=== PATIENT | female | born 1960 | race Caucasian/White ===

== ENCOUNTER 2018-05-05 20:49 | Inpatient (IN) | payer OTHER ==
[~2018-05-05] VITALS: Ht 154.9 cm; Wt 54.6 kg
--- NOTE | 2018-05-06 02:50 | NUR ---
PT ARRIVED TO FLOOR VIA STRETCHER. SBA TO TRANSFER TO MS STRETCHER. PT REPORTS NO FEELINGS OF DIZZINESS. REPORTS NO MADELEINE KODY THIS TIME. CONSTANT NAUSEA. 2L NC IN PLACE. SL IN RIGHT AC. D51/2NS WITH 20KCL STARTED AT 150ML/HR. EMISIS BAG PROVIDED. CLEAR LIQUIDS PROVIDED. STANDING WEIGHT. PT REPORTS RECENT WEIGHT LOSS OF 8LBS. VS TAKEN. PT ORIENTED TO ROOM. OOB TO BATHROOM. VOIDED 400ML. BACK TO BED. CALL LIGHT PROVIDED. EDUCATED ON USE, SAFETY AND FALL PREVENTION. PT VERBALIZED UNDERSTANDING. IV SITE WNL AND FLUSHES WELL. DENIES FURTHER NEEDS AT THIS TIME.
--- NOTE | 2018-05-06 06:30 | NUR ---
HELPED PT TO THE RESTROOM AND BACK TO BED, ADMINISTERED ZOFRAN FOR NAUSEA. PT REMOVED O2 AND O2 SAT DROPPED TO 89%. PT HAS [address] AT THIS TIME AT 95%.
--- NOTE | 2018-05-06 06:54 | NUR ---
DR MARKHAM NOTIFIED ABOUT PT LOW PLATELET COUNT OF 84 AND LOVENOX ORDERED. TELEPHONE ORDERS TO DC LOVENOX AND PLACE SCD'S AT THIS TIME
--- NOTE | 2018-05-06 07:16 | NUR ---
ZOFRAN NOT EFFECTIVE ON NAUSEA. PHENERGAN ADMINISTERED. CALL LIGHT IN REACH. DENIES OTHER NEEDS AT THIS TIME
--- NOTE | 2018-05-06 10:21 | NUR ---
ADMINISTERED MEDICATION PER MAR, PATIENT HAD 200 EMESIS AFTER SWALLOWING PRADAXA, LUCKILY MEDICATION STAYED DOWN. PATIENT REPORTS SOME RELIEF AND ABLE TO REST BACK IN BED. LR BOLUS INFUSING. INSTRUCTED PATIENT TO USE CALL LIGHT WHEN SHE NEEDS TO GET UP TO THE BATHROOM. PATIENT VERBALIZED UNDERSTANDING. NO COMPLAINTS OF PAIN AT THIS TIME, 0/10 ON PAIN SCALE. PATIENT AWARE SHE CAN HAVE SOME MORHPINE NEEDED IV. NO OTHER NEEDS AT THIS TIME. CALL LIGHT WITHIN REACH.
--- NOTE | 2018-05-06 10:38 | NUR ---
pt is resting in bed safely with call light in reach. pt asked for some 7-up
--- NOTE | 2018-05-06 13:26 | NUR ---
PT CALL LIGHT ON. PT REQUESTS ASSISTANCE UP TO REST ROOM. PT UP TO VOID WITHOUT ISSUE. PT BACK TO BED. O2 BY NC IN PLACE. SCDS REAPPLIED. PT STATES SHE HAS NO ADDITIONAL REQUESTS OR COMPALINTS AT THIS TIME.
--- NOTE | 2018-05-06 14:51 | NUR ---
pt complaints of nausea, nurse notified. pt oxygen was low canula not in nose, oxygen canula put back on. sats returned to normal. pt resting in bed safley. call light within reach.
--- NOTE | 2018-05-06 16:08 | NUR ---
ADMINISTERED 8MG IV ZOFRAN PATIENT 100ML OF EMESIS AT BEDSIDE. UP TO BATHROOM. GOOD URINE OUTPUT. HOSPITALIST IN ROOM NOW FOR CONSULT. PLAN TO ADMINISTER IV PHENERGAN AFTER AMBULATION IN HALLS.
--- NOTE | 2018-05-06 17:08 | NUR ---
PATIENT SPIKED TEMP 102.6, NOTIFIED DR. MARKHAM. NEW ORDERS FOR BLOOD CULUTURES AND TYLENOL. PATIENT HAD PROJECTILE EMESIS, AND THEN UP TO BATHROOM HAD XL DIARRHEA. PATIENT NOW BACK IN BED, APPEARS LESS ANXIOUS, CONVERSING WITH DAUGHTER. PHENERGAN IV INFUSING.
--- NOTE | 2018-05-06 17:30 | NUR ---
pt resting safely in bed. pt sipping on water. pt has company in room. call light within reach.
--- NOTE | 2018-05-06 17:33 | NUR ---
pt temperature elevated, nurse notified. pt resting in bed. call light within reach.
--- NOTE | 2018-05-06 18:56 | NUR ---
PATIENT HAD EPISODES OF N/V THROUGHOUT DAY MANAGED WITH ZOFRAN AND PHENERGAN. PATIENT UNABLE TO MAINTAIN SATURATIONS ON ROOM AIR, NOW ON 2LNC, LUNG SOUNDS CLEAR THIS MORNING, HOWEVER NOW SOUND MORE DIMINISHED AND PATIENT IS COUGHING UP SOME SPUTUM. IS INITIATED, PATIENT ABLE TO GET 1200 WITH DEVICE. NEW MEDICATION FOR ANTICOAGULATION DABIGATRAN ADMINISTERED. PATIENT TOLERATED WELL. SIPS OF CLEAR FOR COMFORT THROUGHOUT DAY, MOSTLY ICE WATER. SPIKED TEMP 102.6, DR. MARKHAM NOTIFIED PER TELEPHONE, NEW ORDERS FOR BLOOD CULTURES X2 AND TYLENOL FOR FEVER. TEMPERATURE TRENDING DOWN, AND PATIENT RESTING CALMY IN BED AFTER IV PHENERGAN ADMINISTERED. IV BOLUS NS ADMINISTERED TODAY, AND NOW MAINTENANCE FLUID D5LR @125 INFUSING. CALLS MYLA. EDUCATION HANDOUTS FOR MESENTERIC VEIN THROMBOSIS PROVIDED.
--- NOTE | 2018-05-06 19:14 | NUR ---
IN ROOM FOR REPORT. PT IS DROWSY AND IS ALSEEP AGAIN AT THIS TIME. SHE STATES THE PHENERGAN HELPED WITH HER NAUSEA. HER TEMP HAS DECREASED AT THIS TIME TO 101.4. CALL LIGHT IS WITHIN REACH.
--- NOTE | 2018-05-06 21:25 | NUR ---
ROUNDED CHARGE. PATIENT IS RESTING IN BED WITH EYES CLOSED, RR 18. CALL LIGHT IN REACH. NEW IV FLUIDS HUNG. CALL LIGHT IN REACH.
--- NOTE | 2018-05-06 21:27 | NUR ---
ASSESSMENT COMPLETE AND MEDICATIONS ADMINISTERED. PT'S TEMP CONTINUES TO DECREASE BUT IS STILL SLIGHTLY ELEVATED AT 99. DECREASED ROOM TEMP FROM 73 TO 70. FRESH WATER AT BEDSIDE AND ZOFRAN ADMINISTERED FOR NAUSEA. PT DENIES FURTHER NEEDS. CALL LIGHT IS WITHIN REACH.
--- NOTE | 2018-05-06 22:24 | NUR ---
DR MARKHAM CALLED TO CHECK ON PT. GAVE HIM AN UPDATE ABOUT HER TEMP AND NAUSEA.
--- NOTE | 2018-05-06 22:28 | NUR ---
PT IS RESTING WITH EYES CLOSED, RESPIRATIONS ARE EVEN AND NONLABORED. CALL LIGHT IS WITHIN REACH.
--- NOTE | 2018-05-06 23:23 | NUR ---
PT IS RESTING WITH EYES CLOSED, RESPIRATIONS ARE EVEN AND NONLABORED. CALL LIGHT IS WITHIN REACH.
--- NOTE | 2018-05-07 01:14 | NUR ---
PT IS RESTING WITH EYES CLOSED, RESPIRATIONS ARE EVEN AND NONLABORED. CALL LIGHT IS WITHIN REACH.
--- NOTE | 2018-05-07 02:13 | NUR ---
ADMINISTERED PHENERGAN VIA IV PUMP DILUTED IN 20 MLS NS OVER 10 MINUTES WELL ANCEF. PT REPORT NAUSEA BUT NO PAIN. SHE IS AFEBRILE AT THIS TIME. COOL WASHCLOTH PLACED TO FOREHEAD AND FRESH ICEWATER AT BEDSIDE. PT DENIES FURTHER NEEDS AT THIS TIME. CALL LIGHT IS WITHIN REACH.
--- NOTE | 2018-05-07 03:27 | NUR ---
PT STATES THAT THE PHENERGAN DID NOT HELP WITH HER NAUSEA. ADMINISTERED 8MG IV ZOFRAN. SHE DENIES FURTHER NEEDS AT THIS TIME. CALL LIGHT IS WITHIN REACH.
--- NOTE | 2018-05-07 04:55 | NUR ---
PT HAS DRLR INFUSING AT 125MLS/HR. SHE IS ON A CLEAR LIQUID DIET FOR COMFORT. SHE RECEIVES PRADAXA FOR ANTICOAGULATION. ANCEF IV Q8H. SHE DENIED PAIN THROUGH THE NIGHT BUT NEEDED PHENERGANA ND ZOFRAN CONSISTENTLY FOR NAUSEA, NO EMESIS. SHE IS ON 2 LNC. SHE REMAINED AFREBRILE THROUGH THE NIGHT.
--- NOTE | 2018-05-07 05:15 | NUR ---
IN ROOM TO HELP PT BACK TO BED AFTER USING THE RESTROOM. PT CONTINUES TO REPORT NAUSEA DESPITE PHENERGAN AT 0201 AND ZOFRAN AT 0320. HER 02 SAT AFTER AMBULATING WITHOUT O2 TO THE RESTROOM WAS 93%, LEFT HER ON RA AT THIS TIME. PT DENIES FURTHER NEEDS. CALL LIGHT IS WITHIN REACH.
--- NOTE | 2018-05-07 06:35 | NUR ---
PT IS RESTING WITH EYES CLOSED, RESPIRATIONS ARE EVEN AND NONLABORED. CALL LIGHT IS WITHIN REACH.
--- NOTE | 2018-05-07 07:39 | NUR ---
PATIENT RESTING IN BED, EYES CLOSED. CALL LIGHT IN REACH. THIS LIPCOAT SPRAYER SET UP AM CARE FOR PATIENT AT SINK. THIS LIPCOAT SPRAYER WILL RETURN AT A LATER TIME TO ASSIST PATIENT WITH AM CARE. NO OTHER NEEDS AT THIS TIME.
--- NOTE | 2018-05-07 07:44 | NUR ---
RECIEVED BEDSIDE REPORT FROM ESTEBAN MARQUEZ. PT SLEEPING SOUNDLY, BREATHING EVEN AND UNLABORED. NIGHT RN REPORTS NO VISIBLE BLEEDING IN STOOL OR URINE. PT TOLERATING ROOM AIR TRIAL.
--- NOTE | 2018-05-07 08:27 | NUR ---
THIS SHEET TURNER ATTEMPTED TO WAKE PATIENT AND ASSIST PATIENT TO SIT UP FOR BREAKFAST. PATIENT STATED SHE WOULD SIT UP WHEN SHE WAS READY. PATIENT BARELY ABLE TO STAY AWAKE DURING CONVERSATION AND APPEARS TO BE VERY DROWSY.
--- NOTE | 2018-05-07 09:30 | NUR ---
NURSE INITIATED MONITORING OF PULSE OX. PT IS VERY SLEEPY, MINIMAL RESPONSE TO VOICE AND TOUCH. PULSE OX READING O2 AT 95% ON 2L NC, PULSE 85.
--- NOTE | 2018-05-07 10:15 | NUR ---
PT DOWN TO IMAGING FOR 2 VIEW CHEST X-RAY.
--- NOTE | 2018-05-07 10:18 | NUR ---
PATIENT STATES SHE REMEMBERS VOIDING EARLIER THIS MORNING. SOME URINE IN TOILET, BUT MISSED COLLECTION HAT. PATIENT STATES SHE DOES NOT FEEL THE NEED TO URINATE AT THIS TIME AND REFUSED TO GET UP AND TRY. RN NOTIFIED.
--- NOTE | 2018-05-07 10:19 | NUR ---
PATIENT RETURNED TO FLOOR BY XRAY. PATIENT STATES SHE WOULD LIKE TO SHOWER IN ABOUT AN HOUR. CALL LIGHT IN [facility]. NO OTHER NEEDS AT THIS TIME.
--- NOTE | 2018-05-07 14:41 | NUR ---
PATIENT RESTING IN BED, EYES CLOSED, RN IN ROOM. THIS BINDERY MACHINE SETTER SET UP A SHOWER FOR PATIENT, PATIENT TO CALL WHEN READY. CALL LIGHT IN REACH. NO OTHER NEEDS AT THIS TIME.
--- NOTE | 2018-05-07 14:55 | HP ---
[facility] [address], [place] [address] Signed ADMISSION DATE: 05/06/2018 REASON FOR ADMISSION: Inferior mesenteric venous thrombosis, concomitant thrombocytopenia. 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 Approximately Monday (today is Monday), she began having vomiting and nausea 7 times a day, always nonbloody. She also had diarrhea 6-8 episodes daily with intermittent abdominal and lower back cramping type pain. She had subjective sense of fever. She had no dysuria or hematuria. She has had no vaginal bleeding or discharge either. Urinalysis was performed showing urine protein greater than 300, a large amount of blood, leukocyte esterase negative, and red cells greater than 50 per high-power field and urine white cells 10. On that basis, concern was maintained for possible nephrolithiasis and a noncontrast CT was obtained under the direction of Dr. Price, who saw her in the late evening of May 05, 2018, and in the leadite man hours as well. The noncontrast CT was interpreted and showing hyperemia and inflammatory stranding along the inferior mesenteric vein, worrisome for inferior mesenteric venous thrombosis. There is no sign of nephrolithiasis, hydronephrosis, or hydroureter. There were diverticula with inflammation along the sigmoid colon. I was called at approximately 02:30 in the morning about this and recommended that a thrombophilia panel be obtained before any anticoagulation be initiated. She was admitted with an anticipated plan of lovenox or heparin heparin therapy; however, before I saw her on this morning, I was advised by the pharmacy that her platelet count at presentation was 84,000 with concern about giving Lovenox and therefore, it was discontinued pending further evaluation. Currently this morning, the patient still has nausea, which has been unresponsive to Zofran and Phenergan. She has had no further nausea or vomiting and no diarrhea. Abdominal pain is somewhat improved with IV hydration. Notably, the patient smokes on a daily basis. She is interested in quitting actually. She does not drink alcohol. The patient has had no exposure to heparin in the past that she is aware of. She has had surgery in the distant past 37 years ago, a gallbladder operation in [place], [place] and in 2009, bladder suspension surgery by Dr. Krause and others. This Electronically Signed By: LOTTIE MARKHAM MD 05/07/18 1455 PATIENT NAME: MARGO ELKINS HISTORY AND PHYSICAL DATE OF : 58 REPORT #: [id number] PHYSICIAN: LOTTIE MARKHAM MD PCP: NO PRIMARY CARE PHYSICIAN REPORT IS CONFIDENTIAL AND NOT TO BE RELEASED WITHOUT AUTHORIZATION [address] Newby of urologist. The patient has had no prior history of clotting disorder, specifically no deep venous thrombosis or other issue and knows of no family history of clotting disorder either. In her evaluation in the emergency room, her white count was noted to be 8.8, hematocrit 45.3, platelets 84,000. Coag studies including advanced thrombophilia studies are pending. Chem profile showed a potassium of 3.1, glucose of 111. Liver enzymes are normal. Lipase normal at 14. Urinalysis abnormal as previously described and an anticardiolipin IgG antibody and IgM antibody are pending. REVIEW OF SYSTEMS: She denies any hematemesis or blood per rectum and is having no dysphagia. She does feel somewhat thirsty. She is allowed clear liquids for comfort. IV fluids are running currently. She notes of no headache or chest pain or trouble breathing. PHYSICAL EXAMINATION: GENERAL: A pleasant white woman, who is resting quietly. She does not look to be in severe distress in any way. She is certainly not diaphoretic. HEENT: Mucous membranes are dry. Trachea is midline. CHEST: Clear. HEART: Regular without murmur. ABDOMEN: Nondistended and generally soft, really not particularly tender in any focal way. There is no ascites. EXTREMITIES: Show no clubbing, cyanosis, or edema. She has no petechiae. She had 2 CTs performed during the course of her evaluation, 1 with IV contrast, the other without. Initial CT without contrast was rightly obtained to assess for nephrolithiasis given her abnormal urinalysis. Review of her CT scan and the results as interpreted by the radiologist was undertaken. Mesenteric thrombosis is considered in the inferior mesenteric venous distribution. She does have diverticulosis, but not specifically acute diverticulitis that I can tell. There is no evidence of volvulus of small or large bowel that I can tell. I see no evidence of arterial thrombus, but she has significant atherosclerotic changes of the aorta and iliac system. The coronal view of the CT scan is quite notable for what appears to be inferior mesenteric venous thrombosis in fact. In particular, image 60 and 61 appeared to show this phenomenon. Notably, the spleen does not appear enlarged and to my examination, I see no evidence of portal venous thrombosis proper. ASSESSMENT: She has inferior mesenteric venous thrombosis spontaneously noted and with unknown and Electronically Signed By: LOTTIE MARKHAM MD 05/07/18 2182 PATIENT NAME: MARGO ELKINS EIRNN HISTORY AND PHYSICAL DATE OF : 58 REPORT #: [id number] PHYSICIAN: LOTTIE MARKHAM MD PCP: NO PRIMARY CARE PHYSICIAN REPORT IS CONFIDENTIAL AND NOT TO BE RELEASED WITHOUT AUTHORIZATION [facility] [address] [facility] [place] [facility] [place], [place] [address] Signed somewhat unlikely history of underlying thrombophilia disorder, though it is certainly possible. Lab studies have been obtained. Initial management of fluid resuscitation and initiation of Lovenox anticoagulation was considered, but given the low platelet count of 84,000 and despite having no known exposure to heparin already., a brief review of literature shows a more appropriate anticoagulation scheme may include thrombin inhibitor dabigatran, aka pradaxa. This will be initiated without delay and we will avoid Lovenox for the time being. Review of her CT scan incidentally shows diverticulosis, but I see no evidence of diverticulitis proper. With that to be the case, that might be an inciting cause for her inferior mesenteric thrombosis. The source for thrombocytopenia may be a consumptive coagulopathy type problem and although not exposed to heparin, a thrombocytopenic disorder with hyperthrombosis must be considered. She does have apparent duodenal diverticular change, which I will review further with the radiologist when locally available. For now, we will initiate additional fluids and dabigatran as an anticoagulation approach. She shows no evidence of bowel ischemia to require resection and has had no bleeding. We will consult hospitalist, Dr. Meza for his consideration of these factors as well. A nicotine patch will be initiated as she is smoking. Sequential compression device stockings were used as well. Ulcer prophylaxis with Pepcid will be undertaken also. NOTE: The patient has no known primary care physician. Lottie Markham MD JM/MODL /[id number] cc: Elizabeth Price MD Electronically Signed By: LOTTIE MARKHAM MD 05/07/18 1455 PATIENT NAME: BRITTNIMARGO CARABALLO ERINN HISTORY AND PHYSICAL DATE OF : 58 REPORT #: [id number] PHYSICIAN: LOTTIE MARKHAM MD PCP: NO PRIMARY CARE PHYSICIAN REPORT IS CONFIDENTIAL AND NOT TO BE RELEASED WITHOUT AUTHORIZATION [address] [address] Signed Copies: ELIZABETH PRICE MD ~ Electronically Signed By: LOTTIE MARKHAM MD 05/07/18 1455 PATIENT NAME: BRITTNIMARGO CARABALLO ERINN HISTORY AND PHYSICAL DATE OF : 58 REPORT #: [id number] PHYSICIAN: LOTTIE MARKHAM MD PCP: NO PRIMARY CARE PHYSICIAN REPORT IS CONFIDENTIAL AND NOT TO BE RELEASED WITHOUT AUTHORIZATION
--- NOTE | 2018-05-07 17:40 | NUR ---
PATIENT SHOWERED INDEPENDENTLY. THIS ELECTRICIAN SUPERVISOR SUBSTATION ASSISTED WITH LINEN CHANGE. PATIENT IN BED USING INCENTIVE SPIRAMETER. DINNER AT BEDSIDE TABLE FOR PATIENT. CALL LIGHT IN REACH. NO OTHER NEEDS AT THIS TIME.
--- NOTE | 2018-05-07 18:36 | NUR ---
PT REPORTS LESS NAUSEA AND VOMITING THIS SHIFT. PT VERY LETHARGIC AND SLEEPY, BUT MORE ALERT TOWARD END OF SHIFT. PT DOWN TO X-RAY THIS AM. LAB REPORTED POSITVE BLOOD CULTURES. PT TOLERATING CLEAR LIQUIDS WELL. VOIDING QS, BUT OUTPUT IS COLA COLORED. UP TO SHOWER WITH PROOF PRESS OPERATOR ASSISTANCE.
--- NOTE | 2018-05-07 19:42 | NUR ---
IN ROOM FOR REPORT, PT IS RESTING WITH EYES CLOSED, RESPIRATIONS ARE EVEN AND NONLABORED. CALL LIGHT IS WITHIN REACH.
--- NOTE | 2018-05-07 21:47 | NUR ---
PT STATES SHE SPOKE WITH DR MARKHAM ABOUT IBUPROPHEN FOR BACK PAIN. ADVISED PT THAT WHEN THE ORDER IS READY WE WILL BRING IT IN WITH HER OTHER EVENING MEDICATIONS. SHE IS UP TO THE RESTROOM AT THIS TIME WITH THE HELP OF HALEIGH VASQUES.
--- NOTE | 2018-05-07 22:20 | NUR ---
ASSESSMENT INCORRECTLY CHARTED BY THIS RN FOR 2020, IT SHOULD BE 2220.
--- NOTE | 2018-05-07 22:24 | NUR ---
ADMINISTERED EVENING MEDICATIONS AND COMPLETED ASSESSMENT. SHE STATES HER NAUSEA IS IMPROVED TODAY AND SHE HAD NO EMESIS. SHE REPORTS 8/10 BACK PAIN AT THIS TIME AND PRN MOTRIN WAS ADMINISTERED. PT IS ON RA AT THIS TIME AND DENIES SOB. SHE DENIES FURTHER NEEDS AT THIS TIME. CALL LIGHT IS WITHIN REACH.
--- NOTE | 2018-05-07 23:27 | NUR ---
1PA/SBA TO THE BATHROOM AND BACK TO BED. ICE WATER REFILLED. CALL LIGHT AND SIDE TABLE WITHIN REACH.
--- NOTE | 2018-05-08 | NUR ---
PT IS RESTING WITH EYES CLOSED, RESPIRATIONS ARE EVEN AND NONLABORED. CALL LIGHT IS WITHIN REACH.
--- NOTE | 2018-05-08 01:16 | NUR ---
IN ROOM TO GET NEW BAG OF TROY FLUIDS UP, PT'S O2 SAT DROPPED TO 81%. PLACED HER BACK ON 2 LNC FOR THE NIGHT. PT DENIES NEEDS AT THIS TIME.
--- NOTE | 2018-05-08 03:18 | NUR ---
PT WAS UP TO RESTROOM AND BACK IN BED.PT DENIES NAUSEA AND PAIN AT THIS TIME. CALL LIGHT IS WITHIN REACH.
--- NOTE | 2018-05-08 04:58 | NUR ---
PT'S IV WAS BEEPING, SHE DENIES NEEDS AT THIS TIME.
--- NOTE | 2018-05-08 06:44 | NUR ---
PT IS RESTING IN BED. SHE DENIES NEEDS AT THIS TIME. CALL LIGHT IS WITHIN REACH.
--- NOTE | 2018-05-08 07:45 | NUR ---
CALLED TO NOTIFY NO ABX ARE CURRENTLY ORDERED. NEW ORDER GIVEN FOR MERREM 1G Q8. ORDER PLACED
--- NOTE | 2018-05-08 08:39 | NUR ---
PATIENT RESTING, EYES CLOSED, LIGHTS OFF. THIS SALES PROMOTION REPRESENTATIVE SET UP ORAL CARE AND AM CARE IN BATHROOM FOR PATIENT. PATIENT CALL LIGHT IN REACH. NO OTHER NEEDS AT THIS TIME.
--- NOTE | 2018-05-08 08:51 | NUR ---
PT REPORTS FEELING MUCH BETTER TODAY, SHE DID NOT REQUIRE ANY NASUEA MEDICAINE OVER NIGHT, SHE REPORTS SHE SLEPT WELL. SHE TOLERATED JELLO AND WATER THIS AM WITH NO NAUSEA. MOTRIN IS HELPING WITH BACK PAIN.
--- NOTE | 2018-05-08 10:20 | NUR ---
PATIENT RESTING IN BED, CALL LIGHT IN REACH. PATIENT STATES SHE ALREADY WASHED DOWN AT THE SINK AND WOULD NOT LIKE TO SHOWER TODAY. NO OTHER NEEDS AT THIS TIME.
--- NOTE | 2018-05-08 14:28 | NUR ---
PATIENT RESTING IN BED, CALL LIGHT IN REACH, VISITORS IN ROOM. NO OTHER NEEDS AT THIS TIME.
--- NOTE | 2018-05-08 15:54 | NUR ---
THIS PHOTOVOLTAIC FABRICATION TECHNICIAN AND PHOTOVOLTAIC FABRICATION TECHNICIANBill NORRIS ASSISTED PATIENT TO WALK HALLWAYS. PATIENT WALKED ONE LAP IN HALLWAYS AND STATED SHE FELT THAT SHE HAD HAD ENOUGH FOR NOW. PATIENT SITTING UP IN CHAIR IN ROOM NOW, CALL LIGHT IN REACH. RN NOTIFIED. NO OTHER NEEDS AT THIS TIME.
--- NOTE | 2018-05-08 16:11 | NUR ---
PT REPORTS NO APIN OR NAUSEA AT THIS TIME. PT AGREEABLE TO AMBULATING REGULARLY
--- NOTE | 2018-05-08 17:08 | NUR ---
PT REPORTS FEELING MUCH BETTER TODAY. SHE HAS NOT REQUIRED ANY NAUSEA COVERAGE LAST NIGHT OR ALL THIS DAY SHIFT. SHE IS TOLERATING CLEAR LIQUIDS AND REPORTS SHE IS HUNGRY FOR SOMETHING MORE. SHE HAD A SOFT FORMED SMALL BM TODAY. HAS BEEN UP AMBULATING IN HALLS.
--- NOTE | 2018-05-08 18:05 | NUR ---
PATIENT RESTING IN BED. PATIENT COMPLAINS OF PAIN, RATING HER PAIN LEVEL AT AN 8 OUT OF 10. RN NOTIFIED. PATIENT GIVEN FRESH ICE PACKS, AND WARM BLANKETS TO HELP WITH PAIN CONTROL. PATIENT REPOSITIONED. CALL LIGHT IN REACH. NO OTHER NEEDS AT THIS TIME.
--- NOTE | 2018-05-08 18:20 | NUR ---
PATIENT RESTING IN BED, CALL LIGHT IN REACH. NO OTHER NEEDS AT THIS TIME.
--- NOTE | 2018-05-08 19:05 | NUR ---
RECEIEVED REPORT FROM [place] RN. PATIENT IS RESTING IN BED WATHCING TV. NO PAIN OR NAUSEA NOTED. NO NEEDS NOTED AT THIS TIME. CALL LIGHT IN REACH.
--- NOTE | 2018-05-08 20:25 | NUR ---
PATIENT ASSESMENT COMPLETED. PATIENTS EVENING MEDICATIONS GIVEN PER ORDER. PATIENT DENIES ANY PAIN OR NAUSEA AT THIS TIME. PATIENT ASSISTED TO THE RESTROOM A SBA. PATIENT IS STEADY ON HER FEET. PATIENT IS NO SITTING UP AT THE BEDSIDE. FAMILY IS IN THE ROOM. NO FURTHER NEEDS NOTED. CALL LIGHT IN REACH.
--- NOTE | 2018-05-08 21:50 | NUR ---
PATIENT CALLED TO REQUEST IB FOR 04/03 BACK PAIN. PATIENT GIVEN PRN IB FOR BACK PAIN PER ORDER. PATIENT ASSISTED TO THE RESTROOM. PATIENT IS A SBA AND IS STEADY ON HER FEET. PATIENT WAS ABLE TO VOID. PATIENT IS BACK IN BED RESTING. PATIENT DENIES ANY FURTHER NEEDS A THIS TIME. CALL LIGHT IN REACH.
--- NOTE | 2018-05-08 22:53 | NUR ---
PATIENT IS RESTING IN BED WITH ICE CLOSED. PATIENT PLACED ON PULSE OX PER ORDER. READINGS ARE WNL. CALL LIGHT IN REACH.
--- NOTE | 2018-05-08 23:50 | NUR ---
PATIENT CALLED AND REQUESTED NAUSEA MEDICATION. PATIENT GIVEN PRN NAUSEA MEDICATION PER ORDER. PATIENT DENIES ANY FURTHER NEEDS CALL LIGHT IN REACH.
--- NOTE | 2018-05-09 00:25 | NUR ---
PATIENT CALLED AND STATED "THE MEDICATION ISNT WORKING, I NEED SOMETHING ELSE" PATIENT GIVEN PRN NAUSEA MEDICATION PER ORDER. PATIENTS 0000 ABX INFUSING AT THIS TIME. PATIENT HAS PULSE OX IN PLACE AND 2L VIA NC. CALL LIGHT IN REACH.
--- NOTE | 2018-05-09 02:22 | NUR ---
PATIENT IS RESTING IN BED WITH EYES CLOSE. PULSE OX READINGS ARE WNL. CALL LIGHT IN REACH.
--- NOTE | 2018-05-09 04:02 | NUR ---
PATIENT IS RESTING IN BED WITH EYES CLOSED. PULSE OX READINGS ARE WNL. CALL LIGHT IN REACH.
--- NOTE | 2018-05-09 05:46 | NUR ---
PATIENTS VITALS TAKEN AND RECORDED. PATIENT DENIES ANY PAIN OR NAUSEA. PATIENT IS ON 2L VIA NC. PULSE OX IN PLACE. PATIENT DENIES ANY NEEDS AT THIS TIME. CALL LIGHT IN REACH.
--- NOTE | 2018-05-09 06:00 | NUR ---
PATIENT RESTED ON AND OFF THROUGHOUT THE SHIFT. PATIENT IS ON A FULL LIQUID DIET. PATIENT RECEIVED PRN NAUSEA MEDICATION MULTIPLE TIMES. PATIENT HOWEVER DID NOT HAVE ANY EMESIS. PATIENT IS A SBA AND IS STEADY ON HER FEET. PATIENT RECEIVED PRN IB FOR PAIN IN HER BACK. PATIENT HAS IV INFUSING. PATIENT IS AAOX3 AND USES CALL LIGHT APPROPRIATELY. OUTPUT QS.
--- NOTE | 2018-05-09 06:05 | NUR ---
PATIENT COMPLAINS OF NAUSEA. PRN PAIN MEDICAtION GIVEN PER ORDER. PATIENT WAS ABLE TO VOID AND HAVE A SMALL BM. PATIENT IS NOW BACK IN BED RESTING. PULSE OX IN PLACE. PATIENT REMAINS ON 2L VIA NC WHILE SLEEPING. NO FURTHER NEEDS NOTED. CALL LIGHT IN REACH.
--- NOTE | 2018-05-09 08:55 | NUR ---
SERVANDO ASSISTED TO THE BR. PATEINT STATING MILD NASEATED AT THIS TIME. MIREYA ASSIST TO BR. PATIENT STEADY ON HER FEET. WILL CALL WHEN DONE. HOLDING OFF ON BREAKFAST AT THIS TIME.
--- NOTE | 2018-05-09 09:20 | NUR ---
ROUNDED WITH DR. MARKHAM IN ROOM. NEW ORDERS.
--- NOTE | 2018-05-09 10:16 | NUR ---
VS AND I&O'S TAKEN AND DOCUMENTED. PT IS RESTING IN BED. PT STATES SHE DOES NOT NEED ANYTHING AT THIS TIME. CALL LIGHT IS IN REACH.
--- NOTE | 2018-05-09 10:28 | NUR ---
pateint still reports nausea. treated with phenergan. able to take sips with meds. ensure to bedside. agreed tot take shower after nausea better controlled. remains on 2 l per nc. dim lung sounds. encuraged is. hypoactive bs. pateint reports no flatus at this time. scds present
--- NOTE | 2018-05-09 12:24 | NUR ---
ASSISTED PATIENT TO BR. PATIENT REPORTS NAUSEA IMPROVED. VOIDED. ASSISTED BACK TO BED. PATIENT STATING SHE WOULD LIKE A SHOWER AFTER LUNCH. CLEAR LIQUID TRAY TO ROOM.
--- NOTE | 2018-05-09 14:01 | NUR ---
ROUNDED WITH DR. ECHOLS ON PATIENT. PLAN TO GIVE IV POTASSIUM. PATEINT REMAINS NAUSEATED. ZOFRAN GIVEN.
--- NOTE | 2018-05-09 15:08 | NUR ---
PATIENT ASSISTED IN THE SHOWER. TOELRATED WELL. PATIENT AMBULATED IN [place]. TOLERATING WELL. PATIENT REPORTS PASSING FLATUS. ACTIVE BS. PATIENT REMAINS NERVOUS TO EAT. CLEARS AT BEDSIDE.
--- NOTE | 2018-05-09 15:41 | NUR ---
VS AND I&O'S TAKEN AND DOCUMENTED. PT IS BACK TO BED AND TALKING ON THE PHONE. PT IS AWARE TO CALL IF SHE NEEDS ANYTHING. CALL LIGHT IS IN REACH.
--- NOTE | 2018-05-09 16:17 | NUR ---
patient sleeping. sating 96 percent on 2 l per nc. patient rr even and unlabored. call light within reach.
--- NOTE | 2018-05-09 16:20 | NUR ---
patient battled nausea most of the day. treating with zofrkanu and phergan. patient was able to ambulate two laps in stoddard and shower this afternoon. patient reports feeling very tired. needing a lot of encouragment for activity. clear liquid. offered ensures throughout the day. patient has not had much of an appetite. abd active. no pain. mildly distended. scds in place. voiding well.
--- NOTE | 2018-05-09 18:16 | NUR ---
PATIENT DOING WELL WITH AMBULATING IN [place]. TOLERATING ONE LAP. DESATED ON RA TO 88. PLACED 2 L BACK ON PATIENT. PATIENT REQUESTING MOTRIN FOR 8/10 BACK PAIN. TAKING BITES OF CLEAR LIQUID TRAY
--- NOTE | 2018-05-09 19:15 | NUR ---
RECEIVED REPORT FROM DAY SHIFT RN. PATIENT IS RESTING IN BED EATING EVENING MEAL NO NEEDS NOTED. CALL LIGHT IN REACH.
--- NOTE | 2018-05-09 21:30 | NUR ---
PATIENT ASSESMENT COMPLETED. PATIENTS VITALS TAKEN AND RECORDED BY MACHINERY RIGGER. PATIENT ASSISTED TO THE RESTROOM. PATIENT WAS ABLE TO VOID. PATIENTS EVENING MEDICATIONS GIVEN PER ORDER. PATIENT DENIES ANY PAIN OR NAUSEA. NO FURTHER NEEDS NOTED. CALL LIGHT IN REACH.
--- NOTE | 2018-05-10 00:15 | NUR ---
PATIENTS 0000 MEDICATIONS GIVEN PER ORDER. NO NEEDS NOTED. PATIENT DENIES ANY PAIN OR NAUSEA. CALL LIGHT IN REACH.
--- NOTE | 2018-05-10 00:40 | NUR ---
PATIENT ALERTED STAFF THAT SHE WAS INCONTINENT OF STOOL. PATIENT ASSISTED TO THE RESTROOM A SBA. PATIENTS BEDDING CHANGE. PATIENT ASSISTED IN CLEANING UP. PATIENT HAD A LARGE LOOSE BM. PATIENT IS NOW BACK IN BED RESTING. PATIENT DENIES ANY PAIN OR NAUSE. PATIENT REMAINS ON 2L VIA NC. PULSE OX IN PLACE. NO FURTHER NEEDS NOTED CALL LIGHT IN REACH.
--- NOTE | 2018-05-10 02:26 | NUR ---
PATIENT IS RESTING IN BED WITH EYES CLOSED. PULSE OC READINGS ARE WNL. CALL LIGHT IN REACH.
--- NOTE | 2018-05-10 04:26 | NUR ---
PATIENT IS RESTING IN BED WITH EYES CLOSED. PULSE OX READINGS ARE WNL. CALL LIGHT IN REACH.
--- NOTE | 2018-05-10 05:11 | NUR ---
PATIENT ASSISTED TO THE RESTROOM. PATIENT IS A SBA AND IS STEADY ON HER FEET. PATIENT WAS ABLE TO VOID AND HAD A SMALL LOOSE BM. PATIENT IS BACK IN BED RESTING. PATIENT COMPLAINS OF 7/10 PAIN IN HER BACK. PATIENT GIVEN PRN IB PER ORDER. PATIENT PROVIDD WITH JELLO AND FRESH ICE WATER PER ORDER. PATIENTS VITALS TAKEN AND RECORDED. PATIENT REMAINS ON 2L VIA NC AND PULSE OX IN PLACE. CALL LIGHT IN REACH.
--- NOTE | 2018-05-10 05:12 | NUR ---
PATIENT RESTED WELL THROUGHOUT THE SHIFT. PATIENT IS ON A CLEAR LIQUID DIEAT AND IS TOLERATING IT WELL, NO COMPLAINTS OF NAUSEA. PATIENT DID NOT REQUIRE ANY PRN NAUSEA MEDICATION. PATIENT RECEIVED PRN PAIN MEDICATON X1 FOR PAIN IN HER LOWER BACK. PATIENTS URINE OUPUT IS QS. PATIENT HAD X2 LOOSE BMS. PATIENT IS A SBA AND IS TOLERATING IT WELL. PATIENT HAS SCDS IN PLACE. PATIENT IS ON 2L VIA NC. PATIENT HAS PULSE OX INPLACE WHILE ASLEEP. AAOX3 AND USES CALL LIGHT APPROPRIATELY.
--- NOTE | 2018-05-10 08:41 | NUR ---
PT AMBULATED TO BATHROOM WITH SUPERVISION ONLY, MISSED HAT IN TOILET X1 URINE OCCURENCE. NO BM BUT HAD 2 ON NOC SHIFT PER PT. PT SITTING UP IN CHAIR WITH NO PAIN, NO NAUSEA. PT STATES THAT TODAY SHE "FEELS GOOD" AND "FEELS READY TO TAKE ON THE DAY." SHE STATES SHE WANTS TO AMBULATE HALLWAY NUMEROUS TIMES TODAY. PT HAS BEEN WEANED DOWN TO 1 L/MIN OF OXYGEN VIA NC BY RT. PT O2 SAT AT 95%. PT HAD JELLO FOR BREAKFAST; SHE ATTEMPTED THE CLEAR ENSURE BUT DISLIKED THE TASTE AND REFUSED THE REST; SHE STATES SHE FEELS READY TO ADVANCE TO MASHED POTATOS AND TOAST FOR LUNCH. 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 WILL CONTINUE TO MONITOR AND WALK [place] WITH PT SOON.
--- NOTE | 2018-05-10 09:41 | NUR ---
pt ambulated two laps in stoddard. tolerated well. assisted to br. new iv placed. patint tolerated well.
--- NOTE | 2018-05-10 10:46 | NUR ---
PT RESTING COMFORTABLY IN BED WITH BUCKLE AND BUTTON MAKER AT BEDSIDE; NO C/O PAIN OR NAUSEA; EATING JELLO. CALL LIGHT AND BELONGINGS WITHIN REACH; WILL CONTINUE TO MONITOR.
--- NOTE | 2018-05-10 11:00 | NUR ---
PT AMBULATING HALLWAY AT THIS TIME WITH RN AT HER SIDE; PT STEADY ON HER FEET WITH NO WEAKNESS. WILL CONTINUE TO MONITOR
--- NOTE | 2018-05-10 11:47 | NUR ---
PATIENT HAS BEEN HERE 5 DAYS ON CLEAR LIQUID DIET. SHE TRIED A FULL LIQUID DIET 05/08 BUT DEVELOPED NAUSEA SO WENT BACK TO CLEAR LIQUIDS. SHE IS ASKING FOR SOLID FOOD TODAY WHICH IS A GOOD SIGN. DR. MARKHAM HAS NOT BEEN IN TO ROUND YET TO INCREASE HER DIET. ANTICIPATE DIET ADVANCEMENT SO MORE NUTRIENTS WILL BE PROVIDED. NO NUTRITION INTERVENTION AT THIS TIME. WILL CONTINUE TO MONITOR.
--- NOTE | 2018-05-10 11:51 | NUR ---
PATIENT WAS ASKED ABOUT TO TAKE A SHOWER, SHE REFUSED AND SAID THAT " I WANT TO TAKE A SHOWER TOMORROW".
--- NOTE | 2018-05-10 12:59 | NUR ---
THIS RN SPOKE TO DR. MARKHAM AT THIS TIME AT 1251 VIA PHONE TO INFORM HIM OF PT'S TOLERANCE WITH LIQUID DIET AND READINESS FOR ADVANCEMENT. VERBAL ORDER GIVEN TO ADVANCE DIET. WILL ORDER PT MASHED POTATOS AND TOAST REQUESTED BY PT.
--- NOTE | 2018-05-10 13:11 | NUR ---
PT RESTING IN BED, WATCHING TV. SHE IS ALERT, ORIENTED AND MENTIONED THAT SHE WAS FEELING BETTER TODAY. GAVE PT A PRAYER SHAWL, HAD PRAYER WITH HER. WILL FOLLOW NEEDED
--- NOTE | 2018-05-10 13:50 | NUR ---
PATIENT CALLED TO USE BR. PATIENT STBY ASSIST TO BR. TOLERATED WELL. PATIENT TOLERATING REGULAR DIET. EATING ABOUT 50 PERCENT OF FOOD. PATEINT EATING SLOWLY. NO NAUSEA AT THIS TIME. NO PAIN. TITRATED OXYGEN TO 0.5L PER NC. PATINT SATING 90-92 PERCENT
--- NOTE | 2018-05-10 13:58 | NUR ---
patient stating 04/03 in back. requesting motrin at this time. patient voided and had small bm
--- NOTE | 2018-05-10 14:51 | NUR ---
CARE CONFERENCE PT AND THIS PARISH NURSE IN CONFERENCE, PT NURSE WAS IN FOR SM PORTION OF TIME. PT STATES SHE IS FEELING MUCH BETTER AND IS BEING ABLE TO TOLERATE HER DIET--STATES MASHED POTATOES, DINNER ROLL--IT WAS REALLY GOOD SHE SAID. ALSO SAID IN GENERAL SHE IS FEELING MUCH BETTER AND WOULD LIKE TO GO HOME WHEN DR MARKHAM THINKS SHE CAN. STATES SHE HAS BEEN WALKING IN THE HALLS--TWICE YESTERDAY AND ALREADY TWICE TODAY AND WILL DO AGAIN TODAY AT LEAST ONE MORE TIME. PT HAS THE BLINDS OPEN IN THE ROOM AND A MUCH CHEERIER DISPOSITION.
--- NOTE | 2018-05-10 16:44 | NUR ---
PT UP IN CHAIR WITH NO PAIN, NO N/V AND NO REQUESTS OR CONCERNS AT THIS TIME. PT HAS BEEN WEANED OFF OF OXYGEN VIA NC AND IS ON ROOM AIR, MAINTAINING A SATURATION OF 92%. WILL CONTINUE TO MONITOR.
--- NOTE | 2018-05-10 18:09 | NUR ---
PT VS AND CONDITION STABLE TODAY ON 05/10/18 DAY SHIFT. PT PLEASANT, CALM AND COOPERATIVE WITH SOME C/O LOWER BACK PAIN THIS AFTERNOON BUT WAS RESOLVED WITH PAIN MEDICATION. NO N/V TODAY. FREQUENT AMBULATION IN HALLWAY. PT CURRENTLY AMBULATING AT THIS TIME INDEPENDENTLY ON ROOM AIR WITH NO ISSUES AND IS STEADY/STRONG ON HER FEET. PT'S DIET WAS ADVANCED TO REGULAR TODAY- PT TOOK IT SLOW WITH LOW FIBER FOODS (MASHED POTATOES, A ROLL WITH BUTTER, COTTAGE CHEESE) WITH NO COMPLICATIONS AND TOLERATED THIS ADVANCEMENT WELL. PT IS OVERALL MUCH IMPROVED SINCE THIS RN HAD HER YESTERDAY WELL. EDUCATION COMPLETED WITH PT IN REGARDS TO HER CARE. NO QUESTIONS OR CONCERNS. CALL LIGHT AND BELONGINGS WITHIN REACH OF PT AT ALL TIMES. WILL CONTINUE TO MONITOR.
--- NOTE | 2018-05-10 18:59 | NUR ---
PT SALINE LOCKED AT THIS TIME
--- NOTE | 2018-05-10 19:15 | NUR ---
SHIFT REPORT RECEIVED. PATIENT RESTING IN RECLINER VISITING WITH FRIENDS. NO NEEDS AT THIS TIME.
--- NOTE | 2018-05-10 19:45 | NUR ---
PATIENT UP WALKING IN HALLWAYS INDEPENDENTLY. GAIT STEADY.
--- NOTE | 2018-05-10 20:00 | NUR ---
CHARGE NURSE ROUNDING NOTE:. WALKING HALLWAYS WITH FAMILY, TOLERATED WELL, NO C/O PAIN, FRESH WATER GIVEN, CALL LIHGT WITHIN HANDS REACH
--- NOTE | 2018-05-10 21:21 | NUR ---
VITALS AND I&OS DONE AND CHARTED. BEDSIDE TABLE AND CALL LIGHT WITHIN REACH. PT NEEDS NOTHING MORE AT THIS TIME.
--- NOTE | 2018-05-10 21:30 | NUR ---
EVENING MEDS GIVEN PER ORDER. UPDATED PATIENT ON PLAN OF CARE WITH ORAL MEDS. PATIENT REPORTS FEELING READY TO RETURN HOME. SHE DENIES PAIN. NO NAUSEA AFTER RETURNING TO REGULAR DIET. OUTPUT IS QS. PATIENT IS AMBULATING WELL AND OFTEN. IV SL, FLUSHES WELL. CMS INTACT. SCDS IN USE. O2 SAT 93% ON ROOM AIR. PATIENT WILL CALL WHEN SHE IS READY FOR BED. PLACED NC WITHIN REACH ON 3L FOR HS.
--- NOTE | 2018-05-10 22:30 | NUR ---
ASSISTED PATIENT WITH REMOVING HER SCDS, SHE WOULD "LIKE A BREAK" FROM USING THEM. PATIENT DENIED FURTHER NEEDS.
--- NOTE | 2018-05-11 | NUR ---
PATIENT REQUEST PRN MOTRIN FOR 6/10 BACK PAIN. NO OTHER NEEDS AT THIS TIME.
--- NOTE | 2018-05-11 03:00 | NUR ---
PATIENT RESTING COMFORTABLE. WAKES EASILY TO VOICE. DENIES ANY PAIN OR NEEDS AT THIS TIME. HAS BEEN UP TO THE BATHROOM INDEPENDENTLY. O2 SAT 94% ON 0.5L NC.
--- NOTE | 2018-05-11 05:33 | NUR ---
PATIENT SLEPT OFF AND ON THROUGHOUT THE SHIFT. INDEPENDENT UP TO THE BATHROOM AND IN THE HALLS. STEADY GAIT. NO ABD PAIN, NO NAUSEA. TOLERATING REGULAR DIET. PRN MOTRIN FOR BACK PAIN X1. TOLERATES ROOM AIR IN LOW 90'S AT REST. REQUIRES 0.5L NC WHILE SLEEPING. NOSTRILS ARE SORE FROM NC, A&D OINTMENT PROVIDED. SCDS. LUNGS ARE COARSE THROUGHOUT WITH OCCATIONAL EXP. WHEEZES. ENCOURAGE IS & SMOKING CESSATION.
--- NOTE | 2018-05-11 06:47 | NUR ---
PATIENT RESTING IN BED. STATES SHE MAY GET UP FOR A SHOWER SOON, WILL CALL IF SHE DOES. NO PAIN, NO NAUSEA. BREAKFAST ORDERED. NO NEEDS AT THIS TIME.
--- NOTE | 2018-05-11 08:08 | NUR ---
PATIENT IN TAKING A SHOWER. CHANGED BED LINENS. TAKING OUT HER BREAKFAST TRAY.
--- NOTE | 2018-05-11 09:10 | NUR ---
PT UP IN CHAIR COMFORTABLY WATCHING TV. PT STILL HAS NO C/O PAIN OR N/V. PLEASANT, COOPERATIVE, STATING READINESS FOR DISCHARGE. NO QUESTIONS OR CONCERNS. FRESHLY SHOWERED. CALL LIGHT AND BELONGINGS WITHIN REACH. WILL CONTINUE TO MONITOR. SCHEDULED MEDICATIONS GIVEN.
[2018-05-11] MEDS ORDERED: CIPROFLOXACIN500 MG PO (09:38)
[2018-05-11] MEDS ORDERED: METRONIDAZOLE250 MG PO (09:39)
[2018-05-11] MEDS ORDERED: MAPAP325 MG PO (09:39)
[2018-05-11] MEDS ORDERED: NICOTINE PATCH1 EAC1 TD (09:39)
[2018-05-11] MEDS ORDERED: PRADAXA75 MG PO (09:39)
[2018-05-11] MEDS ORDERED: FAMOTIDINE20 MG PO (09:40)
--- NOTE | 2018-05-11 12:14 | NUR ---
PT DRESSED, GETTING READY FOR DC. SHE STATED THAT SHE FEELS MUCH BETTER, AND THAT SHE IS LOOKING FORWARD TO HER BED. EXTENDED A BLESSING, WILL FOLLOW NEEDED
--- NOTE | 2018-05-15 07:31 | DS ---
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 Approximately 5 days prior to her admission, she began having nausea and vomiting only 7 times a day, always nonbloody. Additionally, she had diarrhea 6-day episodes a day with intermittent abdominal and lower back cramping type pain. She had a subjective sense of fever. She had no dysuria or hematuria. She had no vaginal bleeding or other gynecologic problems. Urinalysis was performed upon her presentation to the ER where she was found to have a urine protein greater than 300, a large amount of blood and leukocyte esterase negative and red cells greater than 50 per high-power field. Leukocyte esterase was negative. On that basis, concern was maintained for possible nephrolithiasis and a noncontrast CT was obtained under the direction of Dr. Gibson who saw her late in the evening of May 05. A noncontrast CT showed no evidence of nephrolithiasis, but did show findings suggestive of inflammation of the left lower abdominal mesentery and probable inferior mesenteric vein thrombosis. I was called at approximately 0230 in the morning for further consideration of this and recommended an IV contrast CT, which in fact confirmed inferior mesenteric vein thrombosis. She was admitted for further evaluation and care. A plan for Lovenox anticoagulation was scheduled upon learning that her presentation platelet count was 84,000. On that basis, she was begun on Pradaxa for anticoagulation. PERTINENT PHYSICAL EXAMINATION: GENERAL: Showed a pleasant white woman who is resting quietly. She did not look to be in severe distress and was not diaphoretic. HEENT: Mucous membranes were dry. Trachea midline. CHEST: Clear. HEART: Regular without murmur. ABDOMEN: Nondistended and soft, not particularly with focal tenderness. There is no ascites. HOSPITAL COURSE: Prior to initiation of any antithrombotic medication, blood was obtained for thrombophilia panel. 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 The patient had a blood culture done for fever, which ultimately showed E. coli notably resistant to Bactrim. She was begun on broad-spectrum antibiotics when she had her fever and prior to identification of the positive blood culture. Review of her history Electronically Signed By: LOTTIE MARKHAM MD 05/15/18 0731 PATIENT NAME: MARGO ELKINS DISCHARGE SUMMARY DATE OF : 58 REPORT #: [id number] PHYSICIAN: LOTTIE MARKHAM MD PCP: NO PRIMARY CARE PHYSICIAN REPORT IS CONFIDENTIAL AND NOT TO BE RELEASED WITHOUT AUTHORIZATION [facility] [address] [place], [place] [address] Signed showed no prior history of thrombotic events and no family history of hyper thrombotic events. Consultation was undertaken with the hospitalist, Dr. Meza on May 06, whose evaluation showed her to be a reasonable candidate for heparin-based anticoagulation if necessary as it is quite unlikely she had heparin-induced thrombocytopenia and she had not had heparin exposure that could be determined. Mindful of that possibility, however, I did recommend continued use of the Pradaxa. She had progressive improvement over time and as mentioned when blood culture returned positive for E. coli that had been performed on May 06. Antibiotic regimen was changed to Cipro 500 mg p.o. b.i.d. as well as Flagyl 250 mg p.o. t.i.d. The E. coli grown in her bloodstream was resistant to ampicillin and Bactrim, but pansensitive otherwise. By the time of discharge, she is ambulating well, tolerating a low-fiber diet, tolerating well the Pradaxa and has had smoking cessation intervention including nicotine patch. She ultimately weaned herself from the patch and strongly intends to avoid smoking in the future. My plan short-term is to see her back in a month or so. She will undergo a CT scan to be sure that recanalization of the inferior mesenteric vein or at least collateralization has occurred and to ascertain there is no progression to portal vein thrombosis. It is notable that her platelet count though as low as 74,000 rebounded to 115,000 the day prior to discharge indicating strongly that her thrombocytopenia was likely a consumptive type. She will undergo a colonoscopy no sooner than a month from now. She has never had colonoscopy in the past and additionally will be maintained on her anticoagulation scheme for the time being. We will further consider whether stator tester would be appropriate for consultation as to advice of long-term anticoagulation, which at present, I would favor. She will maintain a low-fiber diet until I see her back in the office. She is permitted to work. She will absolutely avoid smoking as well. DISCHARGE DIAGNOSES: 1. 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 2. Smoking history. 3. Febrile illness during hospitalization showing Escherichia coli, pansensitive except to Bactrim and ampicillin, likely related to mesenteric thrombosis in region of sigmoid colon venous distribution. Electronically Signed By: LOTTIE MARKHAM MD 05/15/18 0731 PATIENT NAME: MARGO ELKINS ERINN DISCHARGE SUMMARY DATE OF : 58 REPORT #: [id number] PHYSICIAN: LOTTIE MARKHAM MD PCP: NO PRIMARY CARE PHYSICIAN REPORT IS CONFIDENTIAL AND NOT TO BE RELEASED WITHOUT AUTHORIZATION [facility] [address] [facility] [place], [place] [address] Signed DISCHARGE MEDICATIONS: Include: 1. Cipro 500 mg p.o. b.i.d. #14. 2. Flagyl 250 mg p.o. t.i.d. #21. 3. Nicotine patch 21 mg topically daily as needed. 4. Pradaxa (Dabigatran) 150 mg p.o. b.i.d. #60, refill 12. 5. Tylenol 650 mg p.o. q.6 hours p.r.n. pain. 6. Pepcid 20 mg p.o. q.12 hours #60, refill 2. Lottie Markham MD /MODL /[id number] cc: MD Jerman Harman MD Cynthia Rasch, MD Lohith Veerappa Reddy, MD Copies: CLARA MEZA LOUIS SAMUELS MD RASCH,JAY JAY ABARCA,MALOU AVITIA MD ~ Electronically Signed By: LOTTIE MARKHAM MD 05/15/18 0731 PATIENT NAME: MARGO ELKINS DISCHARGE SUMMARY DATE OF : 58 REPORT #: [id number] PHYSICIAN: LOTTIE MARKHAM MD PCP: NO PRIMARY CARE PHYSICIAN REPORT IS CONFIDENTIAL AND NOT TO BE RELEASED WITHOUT AUTHORIZATION
== END 2018-05-11 11:30 | disposition home or self-care (01) | DRG 871 ==
LOC: ED 20:49 → MS 05-06 02:35
PROVIDERS: ADMIT Surgery
DX: R78.81 Bacteremia (principal); I81 Portal vein thrombosis; F17.210 Nicotine dependence, cigarettes, uncomplicated; B96.20 Unspecified Escherichia coli [E. coli] as the cause of diseases classified elsewhere; D69.6 Thrombocytopenia, unspecified; K57.30 Diverticulosis of large intestine without perforation or abscess without bleeding; E87.6 Hypokalemia
CPT/HCPCS: 36415; 71046; 74176; 74177; 80048; 80053; 81001; 81241; 81291; 83605; 83690; 83735; 85025; 85300; 85303; 85306; 85613; 85651; 85730; 86147; 87040; 87077; 87088; 87186; 94762; 96361; 96372; 96374; 96375; 96376; 99285; 99406; J0690; J1650; J2185; J2405; J2550; J3475; J3480; J7030; J7120; Q9967

== ENCOUNTER 2021-09-20 11:52 | Emergency (ER) | payer SELFPAY ==
[~2021-09-20] VITALS: Ht 152.4 cm; Wt 52.2 kg
[~2021-09-20 11:52] MED LIST: CIPROFLOXACIN500 MG PO; ELIQUIS5 MG PO; FAMOTIDINE20 MG PO; MAPAP325 MG PO; METRONIDAZOLE250 MG PO; NICOTINE PATCH1 EAC1 TD; PRADAXA75 MG PO
--- NOTE | 2021-09-21 18:16 | EKG ---
[facility] [address] [facility] [place], [place] [address] Signed Normal sinus rhythm Right bundle branch block Left posterior fascicular block Bifascicular block Abnormal ECG No previous ECGs available Confirmed by CLARA GONZALEZ DO ([id number]) on 09/21/2021 6:16:20 PM Electronically Signed By: CLARA GONZALEZ DO 09/21/21 1816 PATIENT NAME: MARGO ELKINS Electrocardiogram DATE OF : 58 PHYSICIAN: CLARA GONZALEZ DO REPORT #: [id number] REPORT IS CONFIDENTIAL AND NOT TO BE RELEASED WITHOUT AUTHORIZATION
== END 2021-09-20 18:20 | disposition short-term general hospital (02) ==
LOC: ED 11:52
DX: J44.0 Chronic obstructive pulmonary disease with (acute) lower respiratory infection (principal); J18.9 Pneumonia, unspecified organism; J44.1 Chronic obstructive pulmonary disease with (acute) exacerbation; R77.8 Other specified abnormalities of plasma proteins; I21.4 Non-ST elevation (NSTEMI) myocardial infarction; F17.200 Nicotine dependence, unspecified, uncomplicated; Z88.5 Allergy status to narcotic agent; Z79.899 Other long term (current) drug therapy; Z20.822 Contact with and (suspected) exposure to COVID-19
CPT/HCPCS: 71045; 80048; 81001; 83605; 83880; 84484; 85025; 85379; 93005; 93010; 94640; 96365; 96375; 96376; 99285-25; C9803; J0456; J0696; J2405; J2550; J2930; J7060; U0003

== ENCOUNTER 2023-01-09 20:46 | Inpatient (IN) | payer OTHER ==
[~2023-01-09] VITALS: Ht 154.9 cm; Wt 62.8 kg
[2023-01-10] VITALS (12 sets, daily range): BP systolic 98–138; BP diastolic 57–75
--- NOTE | 2023-01-10 09:15 | EKG ---
[facility] [address] [facility] [place] [address] Signed Normal sinus rhythm Right bundle branch block Abnormal ECG When compared with ECG of 20-SEP-2021 12:47, Left posterior fascicular block is no longer present ST now depressed in Anterior leads Confirmed by Ginger Camargo MD () on 01/10/2023 9:15:19 AM Electronically Signed By: GINGER CAMARGO MD 01/10/23 0915 PATIENT NAME: MARGO ELKINS ERINN Electrocardiogram DATE OF : 58 PHYSICIAN: GINGER CAMARGO MD REPORT #: [id number] REPORT IS CONFIDENTIAL AND NOT TO BE RELEASED WITHOUT AUTHORIZATION
[2023-01-10] MEDS ORDERED: BUDESONIDE-FO10.2 G1 INH (13:09)
[2023-01-10] MEDS ORDERED: VENTOLIN HFA18 GM INH (13:09)
[2023-01-11 07:59] VITALS: BP 111/82
[2023-01-11 12:17] VITALS: BP 109/88
[2023-01-11 14:30] VITALS: BP 107/63
[2023-01-11 17:46] VITALS: BP 111/72
[2023-01-11 20:33] VITALS: BP 130/77
[2023-01-12 05:28] VITALS: BP 123/74
[2023-01-12 10:26] VITALS: BP 113/69
[2023-01-12] MEDS ORDERED: IPRAT-ALBUT 0.5-3 ML INH (13:46)
[2023-01-12] MEDS ORDERED: PREDNISONE20 MG PO (13:46)
[2023-01-12 14:10] VITALS: BP 126/78
[2023-01-12] MEDS ORDERED: COMBIVENT RESPIM4 GM INH (15:21)
== END 2023-01-12 15:40 | disposition home or self-care (01) | DRG 189 ==
LOC: ED 20:46 → CCU 20:47 → MS 01-11 14:25
PROVIDERS: ADMIT Family Medicine; ATTEND Family Medicine
DX: J96.01 Acute respiratory failure with hypoxia (principal); N17.9 Acute kidney failure, unspecified; J44.1 Chronic obstructive pulmonary disease with (acute) exacerbation; Z20.822 Contact with and (suspected) exposure to COVID-19; R73.9 Hyperglycemia, unspecified; E86.0 Dehydration; F17.200 Nicotine dependence, unspecified, uncomplicated; Z88.5 Allergy status to narcotic agent; Z98.890 Other specified postprocedural states; Z90.49 Acquired absence of other specified parts of digestive tract; Z79.01 Long term (current) use of anticoagulants
CPT/HCPCS: 36415; 71045; 74177; 80053; 81003; 83036; 83605; 83735; 83880; 84100; 84484; 85025; 85379; 87502; 93005; 93010; 94640; 94660; 94664; 94760; 94761; 96361; 96375; 96376; 99285-25; A9270; J0696; J1650; J2405; J2930; J7121; J7512; Q9967; U0003

== ENCOUNTER 2023-03-31 18:29 | Inpatient (IN) | payer OTHER ==
[~2023-03-31] VITALS: Ht 154.9 cm; Wt 65.0 kg
--- OUTSIDE RECORDS SUMMARY | ~2023-03-31 | XMS | Continuity of Care Document ---
Demographics + + + | Address | [address] | | | [place] [address] | + + + | Preferred Language | Unknown | + + + | Marital Status | | + + + | Yarsanism Affiliation | Unknown | + + + | Race | White | + + + | Ethnic Group | Not or | + + + Author + + + | Author | [facility] | + + + | Organization | [facility] | + + + | Address | [address] | | | [place] [address] | + + + | Phone | | + + + Care Team Providers + + + + | Care Commercial Management Accountant Name | Role | Phone | + + + + Unavailable | Unavailable | + + + + Unavailable | Unavailable | + + + + Unavailable | Unavailable | + + + + Allergies and Intolerances + + + + + | date | description | facility | type | + + + + + | (no date) | [facility] | | + + + + + | (no date) | [facility] | [facility] ([facility] | | + + + + + | (no date) | [facility] | [facility] ([facility] | [facility] | | + + + + + Encounters No information. Functional Status No information. Immunizations No information. Medications + + + + | date | description | facility | + + + + | 2018-05-11 00:00 | DABIGATRAN ETEXILATE | [facility] | | | MESYLATE | | + + + + | 2023-01-12 00:00 | IPRATROPIUM/ALBUTEROL | [facility] | | | SULFATE | | + + + + | 2023-01-12 00:00 | Budesonide/Formoterol | [facility] | | | Fumarate | | + + + + | 2018-05-11 00:00 | ACETAMINOPHEN | [facility] | + + + + | 2018-05-11 00:00 | CIPROFLOXACIN HCL | [facility] | + + + + | 2018-05-11 00:00 | FAMOTIDINE | [facility] | + + + + | 2023-01-12 00:00 | predniSONE | [facility] | + + + + | 2018-05-11 00:00 | METRONIDAZOLE | [facility] | + + + + | 2023-01-12 00:00 | ALBUTEROL SULFATE | [facility] | + + + + Problems + + + + | date | description | facility | + + + + | 2018-05-06 00:00 | 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 | | + + + + | 2021-09-20 00:00 | Pneumonia | [facility] | + + + + | 2021-09-20 00:00 | Acute exacerbation of | [facility] | | | chronic obstructive | | | | pulmonary disease | | + + + + | 2023-01-10 00:00 | Dehydration | [facility] | + + + + | 2023-01-10 00:00 | Nausea and vomiting | [facility] | + + + + | 2023-03-17 11:53 | ENCNTR SCREEN FOR | [facility] | | | MALIGNANT NEOPLASM OF | | + + + + | 2023-03-17 11:53 | ENCNTR SCREEN MAMMOGRAM | [facility] | | | FOR MALIGNANT NE | | + + + + | 2023-03-17 11:53 | ENCNTR SCREEN MAMMOGRAM | [facility] | | | FOR MALIGNANT NEOPLASM OF | | | | BREAST | | + + + + | 2023-03-17 12:00 | ENCNTR SCREEN FOR | [facility] | | | MALIGNANT NEOPLASM OF | | + + + + | 2023-03-17 12:00 | ENCNTR SCREEN MAMMOGRAM | [facility] | | | FOR MALIGNANT NE | | + + + + Procedures No information. Results/Labs +--------+--------+ + +---------+--------+ + | test | date | author | facility | value | unit | | | | | | | | | interpreta | | | | | | | | tion | +--------+--------+ + +---------+--------+ + + + | Result panel 1 | + + + + + + +---------+ + + | (unknown) | (no date) | (unknown) | [facility] | (no | (units | (unknown) | | | [facility] value[facility] | [facility]) | [facility] | | | | + + + + +---------+ + + + + | Result panel 2 | + + + + + + +---------+ + + | (unknown) | (no date) | (unknown) | [facility] | (no | (units | (unknown) | | | [facility] | value) | unknown) | | | [facility] | | | | + + + + +---------+ + + + + | Result panel 3 | + + + + + + +---------+ + + | (unknown) | (no date) | (unknown) | [facility] | (no | (units | (unknown) | | | [facility] | value) | unknown) | | | | [facility] | | | | + + + + +---------+ + + + + | Result panel 4 | + + + + + + +---------+ + + | (unknown) | (no date) | (unknown) | [facility] | (no | (units | (unknown) | | | [facility] | value) | unknown) | | | | [facility] | | | | + + + + +---------+ + + + + | Result panel 5 | + + + + + + +---------+ + + | (unknown) | (no date) | (unknown) | [facility] | (no | (units | (unknown) | | | | [facility] | value) | unknown) | | | | [facility] | | | | + + + + +---------+ + + + + | Result panel 6 | + + + + + + +---------+ + + | (unknown) | (no date) | (unknown) | [facility] | (no | (units | (unknown) | | | | [facility] | value) | unknown) | | | | [facility] | | | | + + + + +---------+ + + + + | Result panel 7 | + + + + + + +---------+ + + | (unknown) | (no date) | (unknown) | [facility] | (no | (units | (unknown) | | | | [facility] | value) | unknown) | | | | [facility] | | | | + + + + +---------+ + + + + | Result panel 8 | + + + + + + +---------+ + + | (unknown) | (no date) | (unknown) | [facility] | (no | (units | (unknown) | | | | [facility] | value) | unknown) | | | | [facility] | | | | + + + + +---------+ + + + + | Result panel 9 | + + + + + + +---------+ + + | (unknown) | (no date) | (unknown) | [facility] | (no | (units | (unknown) | | | | [facility] | value) | unknown) | | | | [facility] | | | | + + + + +---------+ + + + + | Result panel 10 | + + + + + + +---------+ + + | (unknown) | (no date) | (unknown) | [facility] | (no | (units | (unknown) | | | [facility] value) | unknown) | | | [facility] | | | | + + + + +---------+ + + + + | Result panel 11 | + + + + + + +---------+ + + | (unknown) | (no date) | (unknown) | [facility] | (no | (units | (unknown) | | | [facility] | value) | unknown) | | | | [facility] | | | | + + + + +---------+ + + + + | Result panel 12 | + + + + + + +---------+ + + | (unknown) | (no date) | (unknown) | [facility] | (no | (units | (unknown) | | | [facility] | value) | unknown) | | | | [facility] | | | | + + + + +---------+ + + + + | Result panel 13 | + + + + + + +---------+ + + | (unknown) | (no date) | (unknown) | [facility] | (no | (units | (unknown) | | [facility] value) | unknown) | | | [facility] | | | | + + + + +---------+ + + + + | Result panel 14 | + + + + + + +---------+ + + | (unknown) | (no date) | (unknown) | [facility] | (no | (units | (unknown) | | | [facility] value) | unknown) | | | | [facility] | | | | + + + + +---------+ + + + + | Result panel 15 | + + + + + + +---------+ + + | (unknown) | (no date) | (unknown) | [facility] | (no | (units | (unknown) | | | [facility] | value) | unknown) | | | | [facility] | | | | + + + + +---------+ + + + + | Result panel 16 | + + + + + + +---------+ + + | (unknown) | (no date) | (unknown) | [facility] | (no | (units | (unknown) | | | [facility] value) | unknown) | | [facility] | | | | + + + + +---------+ + + + + | Result panel 17 | + + + + + + +---------+ + + | (unknown) | (no date) | (unknown) | [facility] | (no | (units | (unknown) | | | [facility] | value) | [facility]) | | | [facility] | | | | + + + + +---------+ + + + + | Result panel 18 | + + + + + + +---------+ + + | (unknown) | (no date) | (unknown) | [facility] | (no | (units | (unknown) | | | [facility] value) | [facility]) | [facility] | | | | + + + + +---------+ + + + + | Result panel 19 | + + + + + + +---------+ + + | (unknown) | (no date) | (unknown) | [facility] | (no | (units | (unknown) | | | [facility] value) | [facility]) | | | [facility] | | | | + + + + +---------+ + + + + | Result panel 20 | + + + + + + +---------+ + + | (unknown) | (no date) | (unknown) | [facility] | (no | (units | (unknown) | | | [facility]) | [facility]) | [facility] | | | | + + + + +---------+ + + + + | Result panel 21 | + + + + + + +---------+ + + | (unknown) | (no date) | (unknown) | [facility] | (no | (units | (unknown) | | | [facility] | value) | unknown) | | | | [facility] | | | | + + + + +---------+ + + + + | Result panel 22 | + + + + + + +---------+ + + | (unknown) | (no date) | (unknown) | [facility] | (no | (units | (unknown) | | | | [facility] | value) | unknown) | | [facility] | | | | + + + + +---------+ + + + + | Result panel 23 | + + + + + + +---------+ + + | (unknown) | (no date) | (unknown) | [facility] | (no | (units | (unknown) | | | [facility] | value) | unknown) | | | | [facility] | | | | + + + + +---------+ + + + + | Result panel 24 | + + + + + + +---------+ + + | (unknown) | (no date) | (unknown) | [facility] | (no | (units | (unknown) | | | [facility] value) | unknown) | | [facility] | | | | + + + + +---------+ + + + + | Result panel 25 | + + + + + + +---------+ + + | (unknown) | (no date) | (unknown) | [facility] | (no | (units | (unknown) | | | [facility] value) | unknown) | [facility] | | | | + + + + +---------+ + + + + | Result panel 26 | + + + + + + +---------+ + + | (unknown) | (no date) | (unknown) | [facility] | (no | (units | (unknown) | | | [facility] value) | unknown) | [facility] | | | | + + + + +---------+ + + + + | Result panel 27 | + + + + + + +---------+ + + | (unknown) | (no date) | (unknown) | [facility] | (no | (units | (unknown) | | | [facility] | value) | unknown) | | [facility] | | | | + + + + +---------+ + + + + | Result panel 28 | + + + + + + +---------+ + + | (unknown) | (no date) | (unknown) | [facility] | (no | (units | (unknown) | | | [facility] | value) | [facility]) | [facility] | | | | + + + + +---------+ + + + + | Result panel 29 | + + + + + + +---------+ + + | (unknown) | (no date) | (unknown) | [facility] | (no | (units | (unknown) | | | [facility] value) | [facility]) | | [facility] | | | | + + + + +---------+ + + + + | Result panel 30 | + + + + + + +---------+ + + | (unknown) | (no date) | (unknown) | [facility] | (no | (units | (unknown) | | | [facility] value) | [facility]) | [facility] | [facility] | | | | + + + + +---------+ + + + + | Result panel 31 | + + + + + + +---------+ + + | (unknown) | (no date) | (unknown) | [facility] | (no | (units | (unknown) | | | | [facility] | value) | unknown) | | [facility] | | | | + + + + +---------+ + + + + | Result panel 32 | + + + + + + +---------+ + + | (unknown) | (no date) | (unknown) | [facility] | (no | (units | (unknown) | | | | [facility] | value) | [facility]) | | | [facility] | | | | + + + + +---------+ + + + + | Result panel 33 | + + + + + + +---------+ + + | (unknown) | (no date) | (unknown) | [facility] | (no | (units | (unknown) | | | [facility] | value) | unknown) | | [facility] | | | | + + + + +---------+ + + + + | Result panel 34 | + + + + + + +---------+ + + | (unknown) | (no date) | (unknown) | [facility] | (no | (units | (unknown) | | | [facility] value) | [facility]) | | | [facility] | | | | + + + + +---------+ + + + + | Result panel 35 | + + + + + + +---------+ + + | (unknown) | (no date) | (unknown) | [facility] | (no | (units | (unknown) | | | [facility] | value) | unknown) | | | [facility] | | | | + + + + +---------+ + + + + | Result panel 36 | + + + + + + +---------+ + + | (unknown) | (no date) | (unknown) | [facility] | (no | (units | (unknown) | | | [facility] value) | unknown) | | | [facility] | | | | + + + + +---------+ + + + + | Result panel 37 | + + + + + + +---------+ + + | (unknown) | (no date) | (unknown) | [facility] | (no | (units | (unknown) | | | [facility] | value) | unknown) | | [facility] | | | | + + + + +---------+ + + + + | Result panel 38 | + + + + + + +---------+ + + | (unknown) | (no date) | (unknown) | [facility] | (no | (units | (unknown) | | | [facility] value) | unknown) | | [facility] | | | | + + + + +---------+ + + + + | Result panel 39 | + + + + + + +---------+ + + | (unknown) | (no date) | (unknown) | [facility] | (no | (units | (unknown) | | | [facility]) | [facility]) | | [facility] | | | | + + + + +---------+ + + + + | Result panel 40 | + + + + + + +---------+ + + | (unknown) | (no date) | (unknown) | [facility] | (no | (units | (unknown) | | [facility]) | [facility]) | [facility] | | | | + + + + +---------+ + + + + | Result panel 41 | + + + + + + +---------+ + + | (unknown) | (no date) | (unknown) | [facility] | (no | (units | (unknown) | | | [facility]) | [facility]) | | [facility] | | | | + + + + +---------+ + + + + | Result panel 42 | + + + + + + +---------+ + + | (unknown) | (no date) | (unknown) | [facility] | (no | (units | (unknown) | | | [facility]) | [facility]) | | [facility] | | | | + + + + +---------+ + + + + | Result panel 43 | + + + + + + +---------+ + + | (unknown) | (no date) | (unknown) | [facility] | (no | (units | (unknown) | | | [facility]) | [facility]) | | [facility] | | | | + + + + +---------+ + + + + | Result panel 44 | + + + + + + +---------+ + + | (unknown) | (no date) | (unknown) | [facility] | (no | (units | (unknown) | | | [facility] | [facility]) | [facility] | | | | + + + + +---------+ + + + + | Result panel 45 | + + + + + + +---------+ + + | (unknown) | (no date) | (unknown) | [facility] | (no | (units | (unknown) | | | [facility]) | [facility]) | [facility] | | | | + + + + +---------+ + + + + | Result panel 46 | + + + + + + +---------+ + + | (unknown) | (no date) | (unknown) | [facility] | (no | (units | (unknown) | | | [facility]) | [facility]) | | [facility] | | | | + + + + +---------+ + + + + | Result panel 47 | + + + + + + +---------+ + + | (unknown) | (no date) | (unknown) | [facility] | (no | (units | (unknown) | | | [facility] | [facility]) | [facility] | | | | + + + + +---------+ + + + + | Result panel 48 | + + + + + + +---------+ + + | (unknown) | (no date) | (unknown) | [facility] | (no | (units | (unknown) | | [facility] | [facility]) | [facility] | | | | + + + + +---------+ + + + + | Result panel 49 | + + + + + + +---------+ + + | (unknown) | (no date) | (unknown) | [facility] | (no | (units | (unknown) | | | [facility] | [facility] | [facility] | | | | + + + + +---------+ + + + + | Result panel 50 | + + + + + + +---------+ + + | (unknown) | (no date) | (unknown) | [facility] | (no | (units | (unknown) | | | [facility] | [facility] | | | | + + + + +---------+ + + + + | Result panel 51 | + + + + + + +---------+ + + | (unknown) | (no date) | (unknown) | [facility] | (no | (units | (unknown) | | | [facility] | [facility] | [facility] | | | | + + + + +---------+ + + + + | Result panel 52 | + + + + + + +---------+ + + | (unknown) | (no date) | (unknown) | [facility] | (no | (units | (unknown) | | | [facility] | [facility] | [facility] | | | | + + + + +---------+ + + + + | Result panel 53 | + + + + + + +---------+ + + | (unknown) | (no date) | (unknown) | [facility] | (no | (units | (unknown) | | | [facility] | [facility] | | | | + + + + +---------+ + + + + | Result panel 54 | + + + + + + +---------+ + + | (unknown) | (no date) | (unknown) | [facility] | (no | (units | (unknown) | | | [facility] | [facility] | | | | + + + + +---------+ + + + + | Result panel 55 | + + + + + + +---------+ + + | (unknown) | (no date) | (unknown) | [facility] | (no | (units | (unknown) | | | [facility] | | | | + + + + +---------+ + + Social History No information. Vital Signs + + + +---------+ | date | measurement | value | units | + + + +---------+ | 2023-01-10 00:00 | BMI | 26.2 | kg/m2 | + + + +---------+ | 2023-01-10 00:00 | height_metric | 154.94 | cm | + + + +---------+ | 2023-01-10 00:00 | height_standard | 61 | in | + + + +---------+ | 2023-01-10 00:00 | weight_metric | 62.8 | kg | + + + +---------+ | 2023-01-10 00:00 | weight_standard | 138.45 | lb | + + + +---------+ | 2023-01-12 00:00 | BP_diastolic | 78 | mmHg | + + + +---------+ | 2023-01-12 00:00 | BP_systolic | 126 | mmHg | + + + +---------+ | 2023-01-12 00:00 | heart_rate | 87 | /min | + + + +---------+ | 2023-01-12 00:00 | o2_saturation | 94 | % | + + + +---------+ | 2023-01-12 00:00 | respiration_rate | 17 | /min | + + + +---------+ | 2023-01-12 00:00 | temperature_metric | 36.72 | C | | | | | | + + + +---------+ | 2023-01-12 00:00 | | 98.1 | F | | | temperature_standar | | | | | d | | | + + + +---------+"
--- OUTSIDE RECORDS SUMMARY | ~2023-03-31 | XMS | Continuity of Care Document ---
Demographics + + + | Address | [address] | | | [place] [address] | + + + | Preferred Language | Unknown | + + + | Marital Status | | + + + | Alevism Affiliation | Unknown | + + + | Race | White | + + + | Ethnic Group | Not or | + + + Author + + + | Author | [facility] | + + + | Organization | [facility] | + + + | Address | [address] | | | [place] [address] | + + + | Phone | | + + + Care Team Providers + + + + | Care Cleaner Carpet And Upholstery Name | Role | Phone | + [...] | 2018-05-11 00:00 | DABIGATRAN ETEXILATE | [facility] | | | MESYLATE | | + + + + | 2023-01-12 00:00 | IPRATROPIUM/ALBUTEROL | [facility] | | | SULFATE | | + + + + | 2023-01-12 00:00 | Budesonide/Formoterol | [facility] | | | Fumarate | | + + + + | 2018-05-11 00:00 | ACETAMINOPHEN | [facility] | + + + + | 2018-05-11 00:00 | CIPROFLOXACIN HCL | [facility] | + + + + | 2018-05-11 00:00 | FAMOTIDINE | [facility] | + + + + | 2023-01-12 00:00 | predniSONE | [facility] | + + + + | 2018-05-11 00:00 | METRONIDAZOLE | [facility] | + + + + | 2023-01-12 00:00 | ALBUTEROL SULFATE | [facility] | + + + + Problems + + + + | date | description | facility | + + + + | 2018-05-06 00:00 | 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
--- OUTSIDE RECORDS SUMMARY | ~2023-03-31 | XMS | Continuity of Care Document ---
Demographics + + + | Address | [address] [place] | | | [place] [address] | + + + | Preferred Language | Unknown | + + + | Marital Status | | + + + | Yazdanism Affiliation | Unknown | + + + | Race | White | + + + | Ethnic Group | Not or | + + + Author + + + | Author | [facility] | + + + | Organization | [facility] | + + + | Address | [address] | | | [place] [address] | + + + | Phone | | + + + Care Team Providers + + + + | Care Electronic Security Technician Name | Role | Phone | + [...] + + + | (no date) | Codeine | [facility] (unknown) | | | [facility] | | + + + + + | (no date) | codeine | [facility] | (unknown) | + + + + + | (no date) | Codeine | [facility] (unknown) | | | | Hospital | | + + + + + Encounters No information. Functional Status No information. Immunizations No information. Medications + + + + | date | description | facility | + + + + | 2018-05-11 00:00 | DABIGATRAN ETEXILATE | [facility] | | | MESYLATE | | + + + + | 2023-01-12 00:00 | IPRATROPIUM/ALBUTEROL | [facility] | | | SULFATE | | + + + + | 2023-01-12 00:00 | Budesonide/Formoterol | [facility] | | | Fumarate | | + + + + | 2018-05-11 00:00 | ACETAMINOPHEN | [facility] | + + + + | 2018-05-11 00:00 | CIPROFLOXACIN HCL | [facility] | + + + + | 2018-05-11 00:00 | FAMOTIDINE | [facility] | + + + + | 2023-01-12 00:00 | predniSONE | [facility] | + + + + | 2018-05-11 00:00 | METRONIDAZOLE | [facility] | + + + + | 2023-01-12 00:00 | ALBUTEROL SULFATE | [facility] | + + + + Problems + + + + | date | description | facility | + + + + | 2018-05-06 00:00 | 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
[~2023-03-31 18:29] MED LIST changes: +BUDESONIDE-FO10.2 G1 INH; +COMBIVENT RESPIM4 GM INH; +IPRAT-ALBUT 0.5-3 ML INH; +PREDNISONE20 MG PO; +VENTOLIN HFA18 GM INH
--- NOTE | 2023-03-31 23:40 | NUR ---
[facility], PRIMARY RN HORTENSIA ASSISTED pt TO ROOM. VS COLLECTED AND STABLE. pt ON 3LNC, pt REPORTS SHE HAS OXYGEN AT HOME BUT HASN'T WORN IT "FOR A WHILE BECAUSE MY OXYGEN WAS HIGH ENOUGH". ADMISSION COMPLETED, pt ORIENTED TO ROOM AND CALL LIGHT IN REACH. CPOX IN PLACE PER MD ORDERS AND PRIMARY RN HORTENSIA TO PLACE pt ON TELE. NO ADDITIONAL NEEDS OR CONCERNS. CALL LIGHT IN REACH.
[2023-03-31 23:42] VITALS: BP 152/81
--- NOTE | 2023-04-01 00:15 | NUR ---
DECLINED OFFER OF NEBULIZER. PATIENT STATES SHE NO LONGER TAKES ADVAIR AND WAS PUT ON SPIRIVA AT HOME. WE WILL DO DUONEB TO COVER.
[2023-04-01 01:39] VITALS: BP 148/80
[2023-04-01 04:33] VITALS: BP 119/61
--- NOTE | 2023-04-01 06:41 | NUR ---
PT CALL LIGHT ON. PT REQUESTS ASSISTANCE UP TO RESTROOM. PT PLACED ON LONGER OXGYEN TUBING. REMAINS ON 3L O2 BY NC WITH OXYGEN SATURATIONS IN THE LOW 90'S. STAND BY ASSIST FOR LINE AND TUBE MANAGEMENT UP TO RESTROOM. PT VOIDS WITH OUT ISSUE. NEREIDA CARE PER PT. STAND BY ASSIST BACK TO BED. PT DENIES ADDITIONAL REQUESTS OR COMPLAINTS. CALL LIGHT WITHIN REACH. PTS PRIMARY RN UPDATED.
--- NOTE | 2023-04-01 07:33 | NUR ---
RECEIVED REPORT FROM [facility] NURSE. PT APPEARS TO BE SLEEPING COMFORTABLY. RESPIRATIONS EVEN AND REGULAR. NC IN PLACE. PT IS IN NSR ON TELE.
--- NOTE | 2023-04-01 08:36 | NUR ---
PT ASSESSMENT AND MEDICATION ADMINISTRATION COMPLETED. PT IS A/O, RESPIRATIONS EVEN AND REGULAR. IV FLUIDS RUNNING. DENIES NEEDS/COMPLAINTS ATT. CALL LIGHT WITHIN REACH.
[2023-04-01] MEDS ORDERED: SPIRIVA18 MCG INH (09:36)
[2023-04-01 09:55] VITALS: BP 110/66
--- NOTE | 2023-04-01 10:30 | NUR ---
PT IS A/O, RESPIRATIONS EVEN AND REGULAR. DENIES NEEDS ATT.
--- NOTE | 2023-04-01 12:32 | NUR ---
PT DISCHARGED. PT IS A/O, RESPIRATIONS EVEN AND REGULAR. SENT HOME WITH OXYGEN TANK. HOME O2 IS MEETING PATIENT AT HOME WITH TANKS.
--- NOTE | 2023-04-01 12:33 | NUR ---
PT IS A/O, RESPIRATIONS EVEN AND REGULAR. DENIES NEEDS OR COMPLAINTS ATT. SITTING UP IN CHAIR EATING LUNCH. DENIES N/V.
[2023-04-01 13:17] VITALS: BP 115/67
[2023-04-01 17:33] VITALS: BP 137/68
--- NOTE | 2023-04-01 19:44 | NUR ---
DISCUSSED CARE PLAN AND GOALS OF CARE. PATIENT DECLINES TREATMENTS PERIODICALLY AND STATES SHE ONLY DOES ONCE A DAY AT HOME. THE MEDICATION IS SPIRIVA AND I EXPLAINED THAT OUR SUBSTITUTION IS THE DUONEB QID. WE DISCUSSES PRN OPTIONS AND AT THIS TIME SHE REQUESTED US TO DO THAT. ORDERS UPDATED AND PATIENT AGREEABLE TO CALL FOR TREATMENTS.
[2023-04-01 19:50] VITALS: BP 129/71
--- NOTE | 2023-04-01 19:53 | NUR ---
Pt feels and looks much better than last night. NO nausea or pain. still on 3 liters NC
[2023-04-02 01:30] VITALS: BP 111/68
[2023-04-02 04:23] VITALS: BP 127/64
--- NOTE | 2023-04-02 07:20 | NUR ---
RECEIVED REPORT FROM [facility]OC NURSE. PT APPEARS TO BE RESTING COMFORTABLY. RESPIRATIONS EVEN AND REGULAR.
--- NOTE | 2023-04-02 08:30 | NUR ---
PT ASSESSMENT AND MEDICATION ADMINISTRATION COMPLETED. PT IS A/O, RESPIRATIONS EVEN AND REGULAR. SPO2 88% ON 2L. INCREASED TO 3L PER ORDER FOR SPO2 >90%.
[2023-04-02 09:50] VITALS: BP 115/65
--- NOTE | 2023-04-02 09:58 | NUR ---
PT TELE DISCONTINUED. PT IS A/O, DENIES NEEDS ATT.
--- NOTE | 2023-04-02 10:31 | NUR ---
PT APPEARS TO BE SLEEPING COMFORTABLY. RESPIRATIONS EVEN AND REGULAR.
--- NOTE | 2023-04-02 13:51 | NUR ---
medication administration and assessment completed. assisted pt to restroom. remains on 3l nc.
[2023-04-02 14:15] VITALS: BP 130/78
--- NOTE | 2023-04-02 14:49 | NUR ---
ROUNDED ON PT. PT IV ABX RUNNING. ANTICIPATES DC TODAY. PT IS A/O, RESPIRATIONS EVEN AND REGULAR.
[2023-04-02] MEDS ORDERED: AMOX TR-K CLV1 EAC1 PO (15:03)
[2023-04-02] MEDS ORDERED: FLAGYL375 MG PO (15:04)
[2023-04-02 15:10] VITALS: BP 138/87
== END 2023-04-02 15:45 | disposition home or self-care (01) | DRG 178 ==
LOC: ED 18:29 → MS 22:31
PROVIDERS: ADMIT Internal Medicine; ATTEND Internal Medicine
DX: J69.0 Pneumonitis due to inhalation of food and vomit (principal); J44.1 Chronic obstructive pulmonary disease with (acute) exacerbation; E86.0 Dehydration; F17.210 Nicotine dependence, cigarettes, uncomplicated; Z98.890 Other specified postprocedural states; Z79.899 Other long term (current) drug therapy; Z88.5 Allergy status to narcotic agent; Z20.822 Contact with and (suspected) exposure to COVID-19; I25.2 Old myocardial infarction; Z79.51 Long term (current) use of inhaled steroids
CPT/HCPCS: 36415; 71045; 74022; 80053; 81001; 83690; 83735; 83880; 84484; 85025; 87502; 94640; 94667; 94762; 96361; 96374; 96375; 99285 25; J0780; J1790; J2405; J2543; J3010; J7030; J7121; U0002

== ENCOUNTER 2024-03-21 09:16 | Observation (INO) | payer SELFPAY ==
[~2024-03-21] VITALS: Ht 154.9 cm; Wt 62.6 kg
[~2024-03-21 09:16] MED LIST changes: +AMOX TR-K CLV1 EAC1 PO; +FLAGYL375 MG PO; +SPIRIVA18 MCG INH
--- OUTSIDE RECORDS SUMMARY | 2024-03-21 09:18 | XMS ---
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 El VISIT COUNT (12 MO.) Cinthia Bloom TOTAL 2 NOTE: Visits indicate total known visits. ED/UCC VISIT TRACKING (12 MO.) 03/21/2024 09:17 [facility] TYPE: Emergency COMPLAINT: - DIFFICULTY BREATHING 03/31/2023 18:30 [facility] TYPE: Emergency COMPLAINT: - ABD N/V INPATIENT VISIT TRACKING (12 MO.) 03/31/2023 22:[address] 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
[2024-03-21] MEDS ORDERED: ALBUTEROL/IPRATROPIUM 3 ML NEB ONE (09:30)
[2024-03-21] MEDS ORDERED: ALBUTEROL/IPRATROPIUM 3 ML NEB INH ONE (09:45)
[2024-03-21] MEDS ORDERED: ALBUTEROL/IPRATROPIUM 3 ML NEB INH PRN (09:45)
[2024-03-21 09:46] LABS: BASOPHILS 0.3 % (0-2); EOSINOPHILS 1.1 % (0-6); HEMOGLOBIN 15.3 g/dL (12.0-18.0); LYMPHOCYTES 11.6 % (24-44); MCH 31.5 (27-36); MCHC 32.6 g/dl (30-36); MCV 96.7 fl (81-99); MONOCYTES 8.9 % (0-12); NEUTROPHILS 78.1 % (39-80); PLATELET COUNT 172 K/uL (140-440); RBC 4.86 M/ul (4.3-5.7); RDW 13.9 (10.5-15.0)
[2024-03-21 09:55] LABS: ALBUMIN 3.6 g/dL (3.4-5.0); ALBUMIN/GLOBULIN RATIO 0.77 (1.1-2.4); ANION GAP 11.9 (7-21); BILIRUBIN, TOTAL 0.5 ng/dL (0.2-1.0); BUN/CREATININE RATIO 11.45 (6.0-28.6); CALCIUM 9.2 mg/dL (8.5-10.1); CREATININE, SERUM 0.96 mg/dL (0.55-1.02); MAGNESIUM 1.6 mg/dL (1.8-2.4); POTASSIUM 3.9 mmol/L (3.5-5.1); PROTEIN, TOTAL 8.3 g/dL (6.4-8.2)
[2024-03-21] MEDS ORDERED: methylPREDNISolone SOD SUCC 125 MG/2 ML VIAL IV ONE (10:00)
[2024-03-21 10:24] LABS: INFLUENZA B NAA NEGATIVE (NEGATIVE); RESPIRATORY SYNCYTIAL VIR NAA NEGATIVE (NEGATIVE)
[2024-03-21] MEDS ORDERED: ALBUTEROL SULFATE 0.083% 3 ML VIAL INH ONE (11:15)
[2024-03-21] MEDS ORDERED: ALBUTEROL SULFATE 0.5% 2.5 MG/0.5 ML VIAL ONE (11:18)
[2024-03-21] MEDS ORDERED: ALBUTEROL SULFATE 0.5% 2.5 MG/0.5 ML VIAL INH ONE (11:30)
[2024-03-21] MEDS ORDERED: ACETAMINOPHEN 325 MG TAB PO PRN (14:00)
[2024-03-21] MEDS ORDERED: guaiFENesin 600 MG TABCR PO PRN (14:00)
[2024-03-21] MEDS ORDERED: ondansetron HCL 4 MG/2 ML VIAL IV PRN (14:00)
[2024-03-21] MEDS ORDERED: BENZONATATE 100 MG CAP PO PRN (14:00)
[2024-03-21] MEDS ORDERED: AZITHROMYCIN 500 MG in DEXTROSE 5% 250 ML IV SCH (14:09)
[2024-03-21] MEDS ORDERED: MAGNESIUM SULFATE 2 GM/50 ML BAG IV ONE (14:15)
[2024-03-21 14:56] VITALS: BP 142/83
[2024-03-21] MEDS ORDERED: ALBUTEROL SULFATE 0.083% 3 ML VIAL INH PRN (15:00)
[2024-03-21] MEDS ORDERED: NEURONTIN300 MG PO (15:07)
[2024-03-21] MEDS ORDERED: FLUTICASONE-SA1 EAC4 INH (15:59)
[2024-03-21] MEDS ORDERED: ALBUTEROL/IPRATROPIUM 3 ML NEB INH SCH (16:00)
[2024-03-21] MEDS ORDERED: MAGNESIUM SULFATE 50 ML IV ONE (16:48)
[2024-03-21 17:52] VITALS: BP 131/70
[2024-03-21 20:29] VITALS: BP 131/67
[2024-03-21] MEDS ORDERED: MELATONIN 3 MG TAB PO PRN (21:00)
[2024-03-21] MEDS ORDERED: BUDESONIDE 0.5 MG/2 ML VIAL INH SCH (21:00)
[2024-03-21 23:31] VITALS: BP 131/67
[2024-03-22] VITALS (7 sets, daily range): BP systolic 107–122; BP diastolic 60–74
[2024-03-22 06:03] LABS: BASOPHILS 0.5 % (0-2); HEMATOCRIT 41.3 % (35.0-50.0); HEMOGLOBIN 13.5 g/dL (12.0-18.0); LYMPHOCYTES 12.6 % (24-44); MCH 31.7 (27-36); MCHC 32.8 g/dl (30-36); MCV 96.9 fl (81-99); MONOCYTES 12.2 % (0-12); NEUTROPHILS 74.7 % (39-80); PLATELET COUNT 161 K/uL (140-440); RBC 4.27 M/ul (4.3-5.7); RDW 13.4 (10.5-15.0)
[2024-03-22 06:24] LABS: ALBUMIN/GLOBULIN RATIO 0.7 (1.1-2.4); BILIRUBIN, TOTAL 0.3 ng/dL (0.2-1.0); CREATININE, SERUM 0.85 mg/dL (0.55-1.02); MAGNESIUM 2.2 mg/dL (1.8-2.4); PHOSPHORUS, INORGANIC 3.5 mg/dL (2.5-4.9); PROTEIN, TOTAL 7.3 g/dL (6.4-8.2)
[2024-03-22] MEDS ORDERED: predniSONE 20 MG TAB PO SCH (09:00)
[2024-03-22] MEDS ORDERED: ENOXAPARIN SODIUM 40 MG/0.4 ML SYR SUB-Q SCH (09:00)
[2024-03-22] MEDS ORDERED: BENZONATATE100 MG PO (11:59)
[2024-03-22] MEDS ORDERED: PREDNISONE20 MG PO (12:00)
[2024-03-22] MEDS ORDERED: PHARMACY RENAL DOSE ADJUSTMENT 1 DOSE MISC PO SCH (12:00)
[2024-03-22] MEDS ORDERED: MUCINEX600 MG PO (12:00)
[2024-03-22] MEDS ORDERED: AZITHROMYCIN250 MG PO (12:02)
[2024-03-22] MEDS ORDERED: IPRAT-ALBUT 0.5-3 ML INH (12:03)
--- NOTE | 2024-03-22 22:34 | EKG ---
[facility] [address] [facility] [place] [address] Signed Normal sinus rhythm Right bundle branch block Left posterior fascicular block Bifascicular block Abnormal ECG When compared with ECG of 09-JAN-2023 22:52, T wave inversion no longer evident in Anterior leads Confirmed by Ginger Camargo MD () on 03/22/2024 10:34:16 PM Electronically Signed By: GINGER CAMARGO MD 03/22/24 2234 PATIENT NAME: MARGO ELKINS ERINN Electrocardiogram DATE OF : 58 PHYSICIAN: GINGER CAMARGO MD REPORT #: [id number] REPORT IS CONFIDENTIAL AND NOT TO BE RELEASED WITHOUT AUTHORIZATION
== END 2024-03-22 14:59 | disposition home or self-care (01) ==
LOC: ED 09:16 → MS 09:18
PROVIDERS: Emergency Medicine; ADMIT Family Medicine; ATTEND Family Medicine
DX: J96.01 Acute respiratory failure with hypoxia (principal); J44.1 Chronic obstructive pulmonary disease with (acute) exacerbation; E83.42 Hypomagnesemia; F17.200 Nicotine dependence, unspecified, uncomplicated; Z88.5 Allergy status to narcotic agent; Z79.899 Other long term (current) drug therapy
CPT/HCPCS: 36415; 71045; 80053; 83735; 83880; 84100; 84484; 85025; 87502; 93005; 93010; 94640; 94667; 94668; 94760; 94761; A9270; J0456; J1650; J2919; J3475; J7060; J7512; U0002